=== PATIENT | female | born 1940 | race Caucasian/White ===

== ENCOUNTER → 2018-07-10 | Outpatient (CLI) | payer MEDICARE, OTHER ==
--- NOTE | 2018-07-10 18:35 | REP ---
Clinical: Trauma. Technique: AP, lateral, bilateral oblique views of the left first digit. Findings: Crush injury falling the distal phalanx with fracture fragments of the terminal tuft are appreciated. Overlying soft tissue swelling noted. Underlying age-related arthritic changes are identified. Advanced degenerative changes at the first carpometacarpal joint noted. Impression: 1. Crush injury involving the distal phalanx with fracture fragments from the terminal tuft and overlying soft tissue swelling. 2. 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 Electronically Signed by Donn Pantoja MD 07/10/2018 06:27 P
== END ==
LOC: M LRY 18:04
PROVIDERS: ATTEND Nurse Practitioner Family
DX: S67.02XA Crushing injury of left thumb, initial encounter (principal); W23.0XXA Caught, crushed, jammed, or pinched between moving objects, initial encounter; Y92.009 Unspecified place in unspecified non-institutional (private) residence as the place of occurrence of the external cause
CPT/HCPCS: 73140; 90715; G0463

== ENCOUNTER → 2022-11-25 | Outpatient (REF) | payer MEDICARE, OTHER ==
[2022-11-25 13:43] LABS: FOLATE 18.4 NG/ML (>5.4)
== END ==
LOC: M LAB REF 12:34
PROVIDERS: ATTEND Internal Medicine
DX: L60.8 Other nail disorders (principal)

== ENCOUNTER → 2023-11-19 | Outpatient (REF) | payer MEDICARE, OTHER | LOC: M LAB REF 12:16 | PROVIDERS: ATTEND Internal Medicine | DX: N39.0 Urinary tract infection, site not specified (principal) ==

== ENCOUNTER → 2024-12-30 | Outpatient (CLI) | payer MEDICARE, OTHER ==
[~2024-12-30] MED LIST: E-Z-GAS II EFFERVESCENT PACKET (SODIUM BICARB./CITRIC ACID/SIMETHICONE) As Ordered ONE; E-Z-HD 98% w/w 340 GM SUSP BTL As Ordered ONE; E-Z-PAQUE 96% w/w SUSP 176 GM BTL As Ordered ONE
== END ==
LOC: M RAD 08:04
PROVIDERS: ATTEND Internal Medicine
DX: R10.13 Epigastric pain (principal)